=== PATIENT | female | born 1955 ===

== ENCOUNTER 2016-12-08 12:52 | Emergency (ER) | payer OTHER ==
[2016-12-08 12:52] VITALS: BMI 47.6
[2016-12-08 12:58] VITALS: BP 110/75; PULSE 61; RESP 18; TEMP 98.4; O2SAT 96
--- NOTE | 2016-12-08 13:18 | C.PDOC ---
History Of Present Illness Pt c/o itchy rash on right flank area that she thinks are insect bites. Time Seen by Provider: 12/08/16 13:06 Chief Complaint (Nursing): Abnormal Skin Integrity History Per: Patient Onset/Duration Of Symptoms: Days (2) Current Symptoms Are (Timing): Still Present Location Of Injury: Right: Back (Flank area) Quality Of Symptoms: Itching Severity: Moderate Additional History Per: Prior Records Past Medical History Reviewed: Historical Data, Nursing Documentation, Vital Signs Vital Signs: Last Vital Signs Temp 98.4 F 12/08/16 12:54 Pulse 61 12/08/16 12:54 Resp 18 12/08/16 12:54 BP 110/75 12/08/16 12:54 Pulse Ox 96 12/08/16 12:54 - Medical History PMH: No Chronic Diseases, Fractures (LEFT ANKLE/CASTED NO OR) Surgical History: Endoscopy, Tonsillectomy - [facility] Procedures EXCISION OF STOMACH, PERCUTANEOUS ENDOSCOPIC APPROACH, VERT (07/29/15) INSPECTION OF UPPER INTESTINAL TRACT, ENDO (07/29/15) INTRODUCE REGIONAL ANESTH IN PERIPH NRV, PLEXI, PERC (07/29/15) OTHER LOCAL DESTRUC SKIN (06/18/14) REPAIR LEFT DIAPHRAGM, OPEN APPROACH (07/29/15) REPAIR RIGHT DIAPHRAGM, OPEN APPROACH (07/29/15) Family History: States: Unknown Family Hx - Social History Hx Alcohol Use: No Hx Substance Use: No - Immunization History Hx Tetanus Toxoid Vaccination: No Hx Influenza Vaccination: No Hx Pneumococcal Vaccination: No Review Of Systems Except As Marked, All Systems Reviewed And Found Negative. Constitutional: Negative for: Fever, Weakness ENT: Negative for: Mouth Pain, Mouth Swelling, Throat Pain, Throat Swelling Cardiovascular: Negative for: Chest Pain Respiratory: Negative for: Cough, Shortness of Breath Gastrointestinal: Negative for: Vomiting, Abdominal Pain Musculoskeletal: Negative for: Neck Pain Skin: Positive for: Rash Neurological: Negative for: Weakness, Numbness, Seizures, Altered Mental Status Physical Exam - Physical Exam Appears: Non-toxic, No Acute Distress Skin: Normal Color, Warm, Dry, Rash (a group of erythematous papules on right right flank area. Just one small area, therefore no distribution.) Head: Atraumatic, Normacephalic Eye(s): bilateral: Normal Inspection, PERRL, EOMI Neck: Normal ROM, Supple Cardiovascular: Rhythm Regular Respiratory: Normal Breath Sounds, No Accessory Muscle Use Gastrointestinal/Abdominal: Soft, No Tenderness Back: No CVA Tenderness Extremity: Normal ROM Neurological/Psych: Oriented x3, Normal Motor, Normal Sensation ED Course And Treatment O2 Sat by Pulse Oximetry: 96 Pulse Ox Interpretation: Normal Medical Decision Making Medical Decision Making: Rash is not vesicular or in a band-like distribution in order to diagnose herpes zoster. Disposition Counseled Patient/Family Regarding: Diagnosis, Need For Followup - Disposition Referrals: Ray Garcia MD [Staff Provider] - Disposition: HOME/ ROUTINE Disposition Time: 13:20 Condition: STABLE Additional Instructions: Follow up with your doctor. Return to the ER if you develop fever, worsening of symptoms or if you have any other concerns. Instructions: Acute Rash (ED) Print Language: CHINESE - Clinical Impression Clinical Impression: Insect bite of flank with local reaction
== END 2016-12-08 13:56 | disposition home or self-care (01) ==
LOC: C.ER 12:52
DX: S30.861A Insect bite (nonvenomous) of abdominal wall, initial encounter (principal)

== ENCOUNTER 2018-03-28 16:19 | Emergency (ER) | payer OTHER ==
[2018-03-28 16:19] VITALS: BMI 47.6
[2018-03-28 16:24] VITALS: BP 106/71; PULSE 84; RESP 18; TEMP 98.1; O2SAT 96
[2018-03-28] MEDS ORDERED: Tdap Vaccine 0.5 ml Vial (10-64 yrs) IM ONE ×2 (16:35→16:54)
--- NOTE | 2018-03-28 16:50 | C.PDOC ---
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 She states that she was helping to adjust a neurosurgical pin in a patient's head when the pin scraped her finger. Denies having other complaints at this time Time Seen by Provider: 03/28/18 16:26 Chief Complaint (Nursing): Needle Stick History Per: Patient History/Exam Limitations: no limitations Onset/Duration Of Symptoms: Hrs Current Symptoms Are (Timing): Still Present Severity: Moderate Past Medical History Reviewed: Historical Data, Nursing Documentation, Vital Signs Vital Signs: Last Vital Signs Temp 98.1 F 03/28/18 16:22 Pulse 84 03/28/18 16:22 Resp 18 03/28/18 16:22 BP 106/71 03/28/18 16:22 Pulse Ox 96 03/28/18 18:06 - Medical History PMH: Fractures (LEFT ANKLE/CASTED NO OR) Denies: Chronic Kidney Disease Surgical History: Endoscopy, Tonsillectomy - [facility] Procedures EXCISION OF STOMACH, PERCUTANEOUS ENDOSCOPIC APPROACH, VERT (07/29/15) INSPECTION OF UPPER INTESTINAL TRACT, ENDO (07/29/15) INTRODUCE REGIONAL ANESTH IN PERIPH NRV, PLEXI, PERC (07/29/15) OTHER LOCAL DESTRUC SKIN (06/18/14) REPAIR LEFT DIAPHRAGM, OPEN APPROACH (07/29/15) REPAIR RIGHT DIAPHRAGM, OPEN APPROACH (07/29/15) Family History: States: No Known Family Hx - Social History Hx Alcohol Use: Yes Hx Substance Use: No - Immunization History Hx Tetanus Toxoid Vaccination: No Hx Influenza Vaccination: No Hx Pneumococcal Vaccination: No Review Of Systems Except As Marked, All Systems Reviewed And Found Negative. Skin: Positive for: Other (needlestick injury to right 3rd digit) Physical Exam - Physical Exam Appears: Non-toxic, No Acute Distress Skin: Normal Color, Warm, Dry, Other (pin prick to right 3rd digit) Head: Atraumatic, Normacephalic Eye(s): bilateral: Normal Inspection Nose: Normal Oral Mucosa: Moist Neck: Supple Chest: Symmetrical Neurological/Psych: Oriented x3, Normal Speech ED Course And Treatment - Laboratory Results Result Diagrams: 03/28/18 16:49 03/28/18 16:49 O2 Sat by Pulse Oximetry: 96 (RA) Pulse Ox Interpretation: Normal Medical Decision Making Medical Decision Making: Impression: Needlestick Injury Plan: --Labs --Tetanus Vaccination Disposition Counseled Patient/Family Regarding: Diagnosis, Need For Followup - Disposition Disposition: HOME/ ROUTINE Disposition Time: 16:49 Condition: STABLE Forms: [facility] (Kazakh), General Discharge Instructions - POA Present On Arrival: None - Clinical Impression Clinical Impression: Needle stick injury - Scribe Statement The provider has reviewed the documentation as recorded by the Mele Singer Provider Attestation: All medical record entries made by the Markieibjosé miguel were at my direction and personally dictated by me. I have reviewed the chart and agree that the record accurately reflects my personal performance of the history, physical exam, medical decision making, and the department course for this patient. I have also personally directed, reviewed, and agree with the discharge instructions and disposition.
[2018-03-28 16:58] LABS: BASO # 0.1 K/uL (0.0-0.2); EOS # 0.1 K/uL (0.0-0.7); EOS % 1.9 % (0.0-4.0); HEMOGLOBIN 12.2 g/dL (11.0-16.0); LYMPH # 2.8 K/uL (1.0-4.3); LYMPH % 37.6 % (20.0-40.0); MEAN CELL VOLUME 85.1 fL (81.0-99.0); MEAN CORPUSCULAR HEMOGLOBIN 28.4 pg (27.0-31.0); MEAN CORPUSCULAR HGB CONC 33.4 g/dL (33.0-37.0); MEAN PLATELET VOLUME 12.3 fL (7.2-11.7); MONO # 0.7 K/uL (0.0-0.8); MONO % 9.2 % (0.0-10.0); NEUT # 3.7 K/uL (1.8-7.0); NEUT % 50.3 % (50.0-75.0); NRBC % 0.1 % (0.0-2.0); RBC 4.28 Mil/uL (3.80-5.20); RED CELL DISTRIBUTION WIDTH 13.9 % (11.5-14.5); WHITE BLOOD COUNT 7.4 K/uL (4.8-10.8)
[2018-03-28 17:12] LABS: ALB/GLOB RATIO 1.5 (1.0-2.1); ALBUMIN 4.1 g/dL (3.5-5.0); ALT/SGPT 29 U/L (9-52); AMYLASE 73 U/L (30-110); AST/SGOT 19 U/L (14-36); BLOOD UREA NITROGEN 12 mg/dL (7-17); CALCIUM 9.4 mg/dl (8.6-10.4); GFR AFRICAN-AMERICAN > 60; GFR NON-AFRICAN AMERICAN > 60
[2018-03-28 17:43] LABS: HEPATITIS B SURFACE AG Negative (NEGATIVE)
[2018-03-28 17:49] LABS: HEPATITIS A IGM NEGATIVE (NEGATIVE); HEPATITIS B CORE AB NEGATIVE (NEGATIVE)
[2018-03-28 18:01] LABS: HEPATITIS C ANTIBODY NEGATIVE (NEGATIVE)
== END 2018-03-28 16:55 | disposition home or self-care (01) ==
LOC: C.ER 16:19
DX: S61.232A Puncture wound without foreign body of right middle finger without damage to nail, initial encounter (principal); W46.0XXA Contact with hypodermic needle, initial encounter; Y92.234 Operating room of hospital as the place of occurrence of the external cause; Y99.0 Civilian activity done for income or pay; Z23 Encounter for immunization

== ENCOUNTER 2018-04-17 11:36 | Day surgery (SDC) | payer BC, OTHER ==
[2018-04-17] MEDS ORDERED: MethylPREDNISolone Depo 40 mg/ml Inj ONE (12:13)
[2018-04-17] MEDS ORDERED: Bupivacaine 0.75% Inj(30mL) ONE (12:14)
[2018-04-17] MEDS ORDERED: Iohexol 240 (50 ml) ONE (12:14)
[2018-04-17 13:13] VITALS: BP 115/66; PULSE 64; RESP 16; TEMP 97.7; O2SAT 98
--- NOTE | 2018-04-17 17:03 | RAD ---
Date of service: 04/17/2018 PROCEDURE: Intraoperative fluoroscopy HISTORY: LUMBAR RADICULOPATHY COMPARISON: Not available TECHNIQUE: Intraoperative fluoroscopy was provided for an interventional pain management procedure. Total time of fluoroscopy was 15.5 seconds. The cumulative dose was 5.72 mGy. FINDINGS: Multiple fluoroscopic spot films are submitted. IMPRESSION: Fluoroscopy provided
--- NOTE | 2018-05-09 07:01 | OP ---
Copied To: Doug Hernandez MD Attending MD: Doug Hernandez MD PROCEDURE DATE: 04/17/2018 PREOPERATIVE DIAGNOSES: 1. Lumbar radiculopathy. 2. Lumbar herniated disc. 3. Myalgias. POSTOPERATIVE DIAGNOSES: 1. Lumbar radiculopathy. 2. Lumbar herniated disc. 3. Myalgias. PROCEDURES: 1. Right L4-L5, L5-S1 lumbar selective nerve root block. 2. Epidurogram. 3. Trigger point injections. X-RAY: [id number], Fluoroscopy of the spine. ANESTHESIA: MAC/local. SURGEON: Doug Hernandez MD COMPLICATIONS: None. BLOOD LOSS: 2 mL. INDICATION: This patient has intractable back and leg pain that is unresponsive to conservative management. The pain is adversely affecting quality of life and activities of daily living. TECHNIQUE: After comprehensive informed consent was obtained, the risks of the procedure explained and questions answered. The patient understands fully the risks are, but not limited to possible bleeding, infection, headache, nervous tissue injury and worsening of their pain. The patient was placed prone on the operating table in a comfortable position. Confirmation of the procedure to be performed was obtained from the patient. The skin overlying the area to be injected was cleaned in a strict sterile fashion using chlorhexidine. Sterile drapes were placed around the area to be injected. Using the C-arm in the anteroposterior view, the levels to be injected were identified under fluoroscope. Then, the C-arm was obliqued in the coronal plane until the facet joint was delineated approximately 25 degrees. The area to be injected was superficially anesthetized with 3 mL of 1% lidocaine using a 27-gauge, 1.25-inch needle. Under fluoroscopic guidance, a 22-gauge, 3.5-inch short bevel needle was advanced and directed toward the tip of the pars. In the lateral view, ideal placement of the needle was obtained with the tip in the cephalodorsal corner of the neural foramen. In the anteroposterior plane and under continuous fluoroscopy, 1 mL of non-ionic, water-soluble contrast (Omnipaque 180) was injected to visualize the nerve root and make sure there was no vascular uptake. After negative aspiration for blood, 1 mL of preservative-free 0.5% Marcaine in 80 mg of Depo-Medrol was slowly injected at each level. The patient experienced no painful paresthesia during the injection. Epidurogram: The patient underwent transforaminal epidural steroid injection today. The epidural was observed at the level of L4-L5 under AP and lateral fluoroscopic guidance. A 2 mL of Omnipaque 200 contrast was injected that evenly spread from level L3 to S1 level with posterior-anterior dye spread bilaterally at level of L4-L5 and L5-S1. There appeared to be a moderate degree spondylosis at level of L4-L5 and moderate degree of spondylosis at the level of L5-S1 with disc protrusion at the level of L4-L5. The intervertebral disc height at the level of L4-L5 was slightly less than normal and intervertebral disc height at the level of L5-S1 was well maintained. The neural foramen appeared to be patent. Good epidural dye containment from L3-S1 with intervertebral disc protrusion at the level of L4-L5, maintaining less than normal intervertebral disc height at level L4-L5. Spondylosis noted at the level of L4 through S1. Copies of the images are on file. Trigger Point Injections: A 27-gauge needle was used to inject trigger piont areas in paralumbar muscles, parathoracic muscles, and upper gluteal muscles. Needle was redirected to sciatic nerve branches. Total volume of 10 mL of 0.25% Marcaine. Intermittent aspiration was done throughout with no heme or CSF aspirated throughout. The patient tolerated procedure well. DISPOSITION: The patient was taken to the recovery room in stable condition. The patient was given instructions to follow up in two weeks and was discharged in stable condition. No events or complications. Doug Hernandez MD
== END 2018-04-17 12:50 | disposition home or self-care (01) ==
LOC: C.SDS 11:36 → C.OPSURG 11:36 → C.SDS 12:50
PROVIDERS: ATTEND Anesthesiology Pain Medicine
DX: M54.17 Radiculopathy, lumbosacral region (principal); M51.16 Intervertebral disc disorders with radiculopathy, lumbar region
CPT/HCPCS: 62323; J1030; Q9966